=== PATIENT | male | born 1975 | race Caucasian/White ===

== ENCOUNTER → 2021-04-21 | Outpatient (CLI) | payer BC ==
[~2021-04-21] MED LIST: LISI-170 PO; lisinopril
[2021-04-21 09:12] LABS: MICROSCOPIC NOT IND
[2021-04-21 09:19] LABS: INTERNATIONAL NORMALIZED RATIO 1.01 (0.93-1.1); PROTHROMBIN TIME 10.8 Seconds (9.6-11.5)
[2021-04-21 09:22] LABS: ALBUMIN 3.9 g/dL (3.4-5.0); CALCIUM 9.1 mg/dL (8.5-10.1)
[2021-04-21 09:23] LABS: BASOPHILS % (AUTO) 1 % (0-1); EOSINOPHILS % (AUTO) 4 % (1-7); LYMPHOCYTES % (AUTO) 24 % (22-44); MD NO; MEAN CORPUSCULAR HEMOGLOBIN 29.4 pg (27.5-34.5); MEAN CORPUSCULAR HGB CONC 34.9 g/dL (33.2-36.2); MEAN PLATELET VOLUME 8.4 fL (7.4-10.4); MONOCYTES % (AUTO) 6 % (2-9); NEUTROPHILS % (AUTO) 65 % (42-75); PLATELET COUNT 205 x10^3/uL (130-400); RED BLOOD COUNT 5.71 x10^6/uL (4.38-5.82); RED CELL DISTRIBUTION WIDTH 12.5 % (9.4-14.8)
[2021-04-21 09:25] LABS: ALANINE AMINOTRANSFERASE 46 U/L (12-78); ALKALINE PHOSPHATASE 60 U/L (45-117); BILIRUBIN,TOTAL 0.6 mg/dL (0.2-1.0); CREATININE 1.01 mg/dL (0.7-1.3); TOTAL PROTEIN 8.4 g/dL (6.4-8.2)
[2021-04-21 09:40] LABS: ANION GAP 5 mmol/L (5-15); CHLORIDE 107 mmol/L (98-107)
== END | disposition home or self-care (01) ==
LOC: STAR 07:54
PROVIDERS: ATTEND Neurological Surgery
DX: Z01.810 Encounter for preprocedural cardiovascular examination (principal); Z01.811 Encounter for preprocedural respiratory examination; Z01.812 Encounter for preprocedural laboratory examination; M54.17 Radiculopathy, lumbosacral region; M43.16 Spondylolisthesis, lumbar region; R79.1 Abnormal coagulation profile; R82.90 Unspecified abnormal findings in urine; R94.31 Abnormal electrocardiogram [ECG] [EKG]; R00.1 Bradycardia, unspecified
CPT/HCPCS: 36415; 71046; 80053; 81003; 85025; 85610; 85730; 93005

== ENCOUNTER → 2021-04-27 | Outpatient (CLI) | payer BC | END | disposition home or self-care (01) | LOC: STAR 09:50 | PROVIDERS: ATTEND Neurological Surgery | DX: Z20.822 Contact with and (suspected) exposure to COVID-19 (principal) | CPT/HCPCS: U0003; U0005 ==

== ENCOUNTER 2021-05-02 07:58 | Inpatient (IN) | payer BC ==
[~2021-05-02] VITALS: Ht 172.7 cm; Wt 105.6 kg
[2021-05-02] MEDS ORDERED: BUPIVACAINE/PF 0.5% ONE (10:48)
[2021-05-02] MEDS ORDERED: EPINEPHRINE 1 MG/ML, 1ML ONE (10:48)
[2021-05-02] MEDS ORDERED: BACITRACIN 50,000 UNIT ONE (10:49)
[2021-05-02] MEDS ORDERED: CHLORHEXIDINE 15 ML UDC ONE (14:15)
[2021-05-02] MEDS ORDERED: CHLORHEXIDINE 15 ML UDC PO ONE (14:30)
[2021-05-02] MEDS: LACTATED RINGERS 1,000 ML IV SCH ×2 (14:34→15:50)
[2021-05-02] MEDS ORDERED: MIDAZOLAM 1 MG/ML, 2ML ONE (15:56)
[2021-05-02] MEDS ORDERED: MAGNESIUM HYDROXIDE 8%, 30ML UDC PO PRN (17:00)
[2021-05-02] MEDS ORDERED: SENNA/DOCUSATE TABLET PO PRN (17:00)
[2021-05-02] MEDS ORDERED: LABETALOL 5MG/ML, 20ML IVPush PRN (17:00)
[2021-05-02] MEDS ORDERED: DIPHENHYDRAMINE 50 MG/ML, 1ML IVPush PRN (17:00)
[2021-05-02] MEDS ORDERED: PROMETHAZINE 25 MG/ML, 1ML IM PRN (17:00)
[2021-05-02] MEDS ORDERED: HYDROcodone/APAP 5/325 TABLET PO PRN (17:00)
[2021-05-02] MEDS ORDERED: PHARMACY MAY ADJ FOR RENAL FX MC PRN (17:00)
[2021-05-02] MEDS ORDERED: BISACODYL 10 MG SUPP PR PRN (17:00)
[2021-05-02] MEDS ORDERED: DIPHENHYDRAMINE 50 MG/ML, 1ML IM PRN (17:00)
[2021-05-02] MEDS ORDERED: DIPHENHYDRAMINE 50 MG CAPSULE PO PRN (17:00)
[2021-05-02] MEDS ORDERED: HYDROmorphone 1 MG/ML, 1ML INJ IVPush PRN (17:00)
[2021-05-02] MEDS ORDERED: ONDANSETRON 2MG/ML, 2ML IVPush PRN (17:00)
[2021-05-02] MEDS ORDERED: PROMETHAZINE 25 MG/ML, 1ML IV PRN (17:30)
[2021-05-02] MEDS ORDERED: ALBUTEROL SULFATE 2.5 MG/3 ML NPPB PRN (17:30)
[2021-05-02] MEDS ORDERED: LABETALOL 5MG/ML, 20ML IV PRN (17:30)
[2021-05-02] MEDS ORDERED: HYDROmorphone 2 MG/ML, 1ML IVPush PRN (17:30)
[2021-05-02] MEDS ORDERED: OXYcodone 5 MG/5 ML ORAL.SOL UDC PO PRN (17:30)
[2021-05-02] MEDS ORDERED: hydrALAzine 20 MG/ML, 1ML IV PRN (17:30)
[2021-05-02] MEDS ORDERED: DIAZEPAM 5 MG/ML, 2ML IVPush PRN (17:30)
[2021-05-02] MEDS ORDERED: MEPERIDINE/PF 25MG/0.5ML IVPush PRN (17:30)
[2021-05-02] MEDS ORDERED: ACETAMINOPHEN 325 MG TABLET PO PRN (17:30)
[2021-05-02] MEDS ORDERED: KETOROLAC 30 MG/1 ML IV PRN (17:30)
[2021-05-02] MEDS ORDERED: FENTANYL PF 250 MCG/5ML ONE (17:32)
[2021-05-02] MEDS ORDERED: CEFAZOLIN 1,000 MG ONE (17:32)
[2021-05-02] MEDS ORDERED: PROPOFOL 10 MG/ML, 20ML ONE (17:32)
[2021-05-02] MEDS ORDERED: GLYCOPYRROLATE 0.2MG/1ML, 5ML ONE (17:32)
[2021-05-02] MEDS ORDERED: SUCCINYLCHOLINE 20 MG/ML, 10ML ONE (17:32)
[2021-05-02] MEDS ORDERED: ROCURONIUM 10MG/ML,5ML ONE (17:32)
[2021-05-02] MEDS ORDERED: NEOSTIGMINE 1 MG/ML, 10ML ONE (17:32)
[2021-05-02] MEDS ORDERED: DEXAMETHASONE 4 MG/ML, 1ML ONE (17:32)
[2021-05-02] MEDS ORDERED: ONDANSETRON 2MG/ML, 2ML ONE (17:32)
[2021-05-02] MEDS ORDERED: MEPERIDINE/PF 25MG/ML,1ML ONE (17:40)
[2021-05-02] MEDS ORDERED: METHOCARBAMOL 1,000 MG in DEXTROSE 5% 100 ML IV ONE (18:00)
[2021-05-02] MEDS ORDERED: FENTANYL PF 100 MCG/2ML ONE (18:02)
[2021-05-02] MEDS ORDERED: OXYcodone 5 MG/5 ML ORAL.SOL UDC ONE (18:02)
[2021-05-02] MEDS ORDERED: ACETAMINOPHEN 650 MG/20.3 ML UDC ONE (18:03)
[2021-05-02] MEDS: FENTANYL PF 100 MCG/2ML IV PRN ×2 (18:05→18:40)
[2021-05-02 19:45] VITALS: BP 145/95
[2021-05-02] MEDS: OXYcodone/APAP 5/325MG TABLET PO PRN (23:36)
[2021-05-02] MEDS: D5%-0.9% NACL+KCL 20MEQ 1,000 ML IV SCH (23:36)
[2021-05-03] MEDS: CEFAZOLIN PMX 1GM/50ML 50 ML IVPB SCH ×2 (00:45→08:30)
[2021-05-03 03:30] VITALS: BP 126/78
[2021-05-03 05:29] LABS: BASOPHILS % (AUTO) 0 % (0-1); EOSINOPHILS % (AUTO) 0 % (1-7); LYMPHOCYTES % (AUTO) 6 % (22-44); MEAN CORPUSCULAR HEMOGLOBIN 29.3 pg (27.5-34.5); MEAN CORPUSCULAR HGB CONC 35.1 g/dL (33.2-36.2); MEAN PLATELET VOLUME 8.7 fL (7.4-10.4); MONOCYTES % (AUTO) 5 % (2-9); NEUTROPHILS % (AUTO) 89 % (42-75); PLATELET COUNT 215 x10^3/uL (130-400); RED BLOOD COUNT 5.11 x10^6/uL (4.38-5.82); RED CELL DISTRIBUTION WIDTH 12.3 % (9.4-14.8)
[2021-05-03 05:34] LABS: ALBUMIN 3.2 g/dL (3.4-5.0); ANION GAP 6 mmol/L (5-15); CALCIUM 8.4 mg/dL (8.5-10.1); CHLORIDE 107 mmol/L (98-107); CREATININE 0.95 mg/dL (0.7-1.3)
[2021-05-03] MEDS: OXYcodone/APAP 5/325MG TABLET PO PRN ×3 (05:38→23:51)
[2021-05-03] MEDS ORDERED: VANCOMYCIN 1,000 MG ONE (06:19)
[2021-05-03] MEDS ORDERED: BUPIVACAINE/PF 0.5% ONE (06:19)
[2021-05-03] MEDS ORDERED: EPINEPHRINE 1 MG/ML, 1ML ONE (06:19)
[2021-05-03] MEDS ORDERED: BACITRACIN 50,000 UNIT ONE (06:19)
[2021-05-03 07:20] VITALS: BP 128/79
[2021-05-03] MEDS ORDERED: CHLORHEXIDINE 15 ML UDC ONE (10:39)
[2021-05-03] MEDS ORDERED: CHLORHEXIDINE 15 ML UDC PO ONE (11:00)
[2021-05-03] MEDS ORDERED: PROPOFOL 50 ML ONE (11:20)
[2021-05-03] MEDS ORDERED: FENTANYL PF 100 MCG/2ML ONE (11:20)
[2021-05-03] MEDS ORDERED: MIDAZOLAM 1 MG/ML, 2ML ONE (11:20)
[2021-05-03] MEDS ORDERED: FENTANYL PF 100 MCG/2ML IV PRN (12:30)
[2021-05-03] MEDS ORDERED: HYDROcodone/APAP 7.5-325MG/15ML UDC PO PRN (12:30)
[2021-05-03] MEDS ORDERED: KETOROLAC 30 MG/1 ML IVPush PRN (12:30)
[2021-05-03] MEDS ORDERED: PROMETHAZINE 25 MG/ML, 1ML IVPush PRN (12:30)
[2021-05-03] MEDS ORDERED: MEPERIDINE/PF 25MG/0.5ML IVPush PRN (12:30)
[2021-05-03] MEDS ORDERED: METHOCARBAMOL 1,000 MG in DEXTROSE 5% 100 ML IV PRN (12:30)
[2021-05-03] MEDS ORDERED: OXYcodone 5 MG/5 ML ORAL.SOL UDC PO PRN (12:30)
[2021-05-03] MEDS ORDERED: ACETAMINOPHEN 325 MG TABLET PO PRN (12:30)
[2021-05-03] MEDS ORDERED: HYDROmorphone 1 MG/ML, 1ML INJ IVPush PRN (12:30)
[2021-05-03] MEDS ORDERED: ONDANSETRON 2MG/ML, 2ML IVPush PRN ×2 (12:30→14:00)
[2021-05-03] MEDS ORDERED: SUCCINYLCHOLINE 20 MG/ML, 10ML ONE (12:37)
[2021-05-03] MEDS ORDERED: ROCURONIUM 10 MG/ML,10ML ONE (12:37)
[2021-05-03] MEDS ORDERED: VANCOMYCIN 1,000 MG IM ONE (13:12)
[2021-05-03] MEDS: D5%-0.9% NACL+KCL 20MEQ 1,000 ML IV SCH ×2 (14:00→19:38)
[2021-05-03] MEDS ORDERED: DIPHENHYDRAMINE 50 MG CAPSULE PO PRN (14:00)
[2021-05-03] MEDS ORDERED: LABETALOL 5MG/ML, 20ML IVPush PRN (14:00)
[2021-05-03] MEDS ORDERED: METHOCARBAMOL 1,000 MG in DEXTROSE 5% 100 ML IV ONE (14:00)
[2021-05-03] MEDS ORDERED: MAGNESIUM HYDROXIDE 8%, 30ML UDC PO PRN (14:00)
[2021-05-03] MEDS ORDERED: ENOXAPARIN 40 MG/0.4 ML SQ SCH (14:00)
[2021-05-03] MEDS ORDERED: PHARMACY MAY ADJ FOR RENAL FX MC PRN (14:00)
[2021-05-03] MEDS ORDERED: DIPHENHYDRAMINE 50 MG/ML, 1ML IVPush PRN (14:00)
[2021-05-03] MEDS ORDERED: PROMETHAZINE 25 MG/ML, 1ML IM PRN (14:00)
[2021-05-03] MEDS ORDERED: SENNA/DOCUSATE TABLET PO PRN (14:00)
[2021-05-03] MEDS ORDERED: DIPHENHYDRAMINE 50 MG/ML, 1ML IM PRN (14:00)
[2021-05-03] MEDS ORDERED: BISACODYL 10 MG SUPP PR PRN (14:00)
[2021-05-03] MEDS ORDERED: MEPERIDINE/PF 25MG/ML,1ML ONE (14:14)
[2021-05-03] MEDS ORDERED: OXYcodone 5 MG/5 ML ORAL.SOL UDC ONE (14:28)
[2021-05-03 15:28] VITALS: BP 148/87
[2021-05-03] MEDS: CLINDAMYCIN PMX 600MG/50ML 50 ML IV SCH ×2 (15:56→21:51)
[2021-05-03 18:41] VITALS: BP 133/83
[2021-05-03] MEDS ORDERED: METHOCARBAMOL 750 MG TABLET PO SCH (19:45)
[2021-05-03] MEDS ORDERED: SODIUM CHLORIDE FLUSH 10ML SYR IVF SCH (21:00)
[2021-05-03] MEDS: METHOCARBAMOL 750 MG TABLET PO PRN (23:08)
[2021-05-04 00:27] VITALS: BP 122/76
[2021-05-04 03:08] VITALS: BP 144/88
[2021-05-04] MEDS: D5%-0.9% NACL+KCL 20MEQ 1,000 ML IV SCH ×2 (03:20→06:00)
[2021-05-04] MEDS: OXYcodone/APAP 5/325MG TABLET PO PRN ×2 (04:04→08:44)
[2021-05-04 05:20] LABS: BASOPHILS % (AUTO) 0 % (0-1); EOSINOPHILS % (AUTO) 0 % (1-7); LYMPHOCYTES % (AUTO) 7 % (22-44); MEAN CORPUSCULAR HEMOGLOBIN 29.2 pg (27.5-34.5); MEAN CORPUSCULAR HGB CONC 34.7 g/dL (33.2-36.2); MEAN PLATELET VOLUME 8.8 fL (7.4-10.4); MONOCYTES % (AUTO) 7 % (2-9); NEUTROPHILS % (AUTO) 86 % (42-75); PLATELET COUNT 215 x10^3/uL (130-400); RED BLOOD COUNT 5.12 x10^6/uL (4.38-5.82); RED CELL DISTRIBUTION WIDTH 12.7 % (9.4-14.8)
[2021-05-04 05:28] LABS: ALBUMIN 3.4 g/dL (3.4-5.0); ANION GAP 7 mmol/L (5-15); CALCIUM 8.7 mg/dL (8.5-10.1); CHLORIDE 106 mmol/L (98-107); CREATININE 0.95 mg/dL (0.7-1.3)
[2021-05-04] MEDS ORDERED: ENOXAPARIN 40 MG/0.4 ML SQ SCH (06:00)
[2021-05-04] MEDS: METHOCARBAMOL 750 MG TABLET PO PRN (06:41)
[2021-05-04 06:47] VITALS: BP 127/68
[2021-05-04] MEDS ORDERED: METH-640 PO (08:34)
[2021-05-04] MEDS ORDERED: OXYC1TAB14 PO (08:34)
[2021-05-04] MEDS ORDERED: LISINOPRIL 20 MG TABLET PO SCH (09:00)
[2021-05-05] MEDS ORDERED: METHOCARBAMOL 750 MG TABLET PO SCH (01:00)
== END 2021-05-04 11:36 | disposition home or self-care (01) | DRG 455 ==
LOC: EDIP 13:44 → ORIP 13:45 → 4NE 19:37 → DCLOUNGE 05-04 11:29
PROVIDERS: ADMIT Neurological Surgery; ATTEND Neurological Surgery
PROC: 0SB40ZZ Excision of Lumbosacral Disc, Open Approach (ICD-10-PCS; 2021-05-02)
PROC: 4A11X4G Monitoring of Peripheral Nervous Electrical Activity, Intraoperative, External Approach (ICD-10-PCS; 2021-05-02)
PROC: 0SG30A0 Fusion of Lumbosacral Joint with Interbody Fusion Device, Anterior Approach, Anterior Column, Open Approach (ICD-10-PCS; principal; 2021-05-02 16:00)
PROC: 0SG3071 Fusion of Lumbosacral Joint with Autologous Tissue Substitute, Posterior Approach, Posterior Column, Open Approach (ICD-10-PCS; 2021-05-03)
PROC: 4A11X4G Monitoring of Peripheral Nervous Electrical Activity, Intraoperative, External Approach (ICD-10-PCS; 2021-05-03)
PROC: 8E0W0CZ Robotic Assisted Procedure of Trunk Region, Open Approach (ICD-10-PCS; 2021-05-03)
DX: M48.061 Spinal stenosis, lumbar region without neurogenic claudication (principal); M43.16 Spondylolisthesis, lumbar region; M43.17 Spondylolisthesis, lumbosacral region; M47.26 Other spondylosis with radiculopathy, lumbar region; M51.16 Intervertebral disc disorders with radiculopathy, lumbar region; Z88.5 Allergy status to narcotic agent; Z88.0 Allergy status to penicillin
CPT/HCPCS: 36415; 72100; 74018; S0020; 72131; 80048; 82040; 85025; 95938; 95941; C1713; G0378; J0171; J0690; J1100; J1650; J2175; J2250; J2405; J2704; J2710; J3010; J3370; C1762; C1889; J0330; J2800; J3480; J7120

== ENCOUNTER → 2021-05-17 | Outpatient (CLI) | payer BC ==
[~2021-05-17] MED LIST changes: +METH-640 PO; +OXYC1TAB14 PO
== END | disposition home or self-care (01) ==
LOC: RAD 12:48
PROVIDERS: ATTEND Physician Assistant
DX: N43.3 Hydrocele, unspecified (principal); N50.812 Left testicular pain
CPT/HCPCS: 76870